=== PATIENT | male | born 1955 | race Caucasian/White ===

== ENCOUNTER 2019-02-15 13:47 | Emergency (ER) | payer BC ==
[~2019-02-15] VITALS: Ht 182.9 cm; Wt 120.5 kg
[2019-02-15 13:51] VITALS: TEMP 98.1
[2019-02-15 14:40] LABS: BASO % 0.6 % (0.0-2.0); EOS # 0.1 (0.0-0.7); EOS % 1.8 % (0-4.0); GRAN # 4.9 (1.4-6.5); GRAN % 71.3 % (42.2-75.2); HEMOGLOBIN 12.8 g/dl (13.5-18.0); LYMPH # 1.1 (1.2-3.4); LYMPH % 15.7 % (20.0-51.0); MEAN CELL VOLUME 85 fl (80.0-100.0); MEAN CORPUSCULAR HEMOGLOBIN 29 pg (27.0-31.0); MEAN CORPUSCULAR HGB CONC 34 g/dl (33.0-37.0); MEAN PLATELET VOLUME 10.5 fl (7.4-10.4); MONO # 0.7 (0.1-0.6); MONO % 10.3 % (1.7-9.3); PLATELET COUNT 226 K/mm3 (130-400); RED BLOOD COUNT 4.47 M/mm3 (4.20-5.60); REDCELL DISTRIBUTION WIDTH-CV 12.3 % (11.5-14.5)
[2019-02-15 14:54] LABS: ALANINE AMINOTRANSFERASE < 6 U/L (21-72); ALBUMIN 4.3 gm/dL (3.5-5.0); ALKALINE PHOSPHATASE 71 U/L (50-136); ANION GAP 12 mmol/L (7-16); AST,SGOT 34 U/L (15-37); BILIRUBIN,TOTAL 0.7 mg/dL (0.0-1.0); BLOOD UREA NITROGEN 16 mg/dL (9-20); C-REACTIVE PROTEIN 0.6 mg/dL (0.0-0.9); CALCIUM 9.8 mg/dL (8.4-10.2); CARBON DIOXIDE 21 mmol/L (22-30); CHLORIDE 107 mmol/L (98-107); CREATININE, serum 1.06 (0.66-1.25); GLUCOSE 100 mg/dL (74-106); POTASSIUM 4.1 mmol/L (3.4-5.0); SODIUM 139 mmol/L (137-145); TOTAL PROTEIN 7.4 gm/dL (6.4-8.2)
[2019-02-15 14:57] LABS: COLLECTION METHOD CLEAN CATCH
[2019-02-15 15:09] LABS: PH 6 (5-8); SQUAMOUS EPITHELIAL None Seen /hpf; URINE APPEARANCE Clear; URINE BACTERIA None Seen /hpf; URINE BILIRUBIN Negative (NEGATIVE); URINE BLOOD Negative (NEGATIVE); URINE COLOR Yellow; URINE GLUCOSE Negative (NEGATIVE); URINE KETONE Trace (NEGATIVE); URINE LEUKOCYTE ESTERASE Negative (NEGATIVE); URINE NITRATE Negative (NEGATIVE); URINE PROTEIN(semi-quant) Negative (NEGATIVE); URINE RBC 0-2 /hpf; URINE UROBILINOGEN Negative (NEGATIVE)
[2019-02-15] MEDS ORDERED: ZOFRAN ODT4 MG PO (15:44)
[2019-02-15] MEDS ORDERED: ANTIVERT 25MG25 MG PO (15:44)
[2019-02-15 15:54] VITALS: BP 143/98; PULSE 72
== END 2019-02-15 15:54 | disposition home or self-care (01) ==
LOC: COL.ER 13:47
PROVIDERS: Family Medicine
DX: R42 Dizziness and giddiness (principal); R55 Syncope and collapse